=== PATIENT | male | born 1955 | race Caucasian/White ===

== ENCOUNTER 2025-06-02 11:27 | Emergency (ER) | payer OTHER, MEDICARE, SELFPAY ==
--- NOTE | ~2025-06-02 | CT_ITS ---
CT HEAD NON-CONTRAST CT C-SPINE Clinical History: head trauma Comparison: None Technique: Unenhanced axial images skull base to vertex. Coronal, sagittal reformats. Axial images thoracic inlet to skull base. Sagittal and coronal reformats. CT images acquired with automatic exposure control for dose reduction DLP: 605 mGy-cm Findings: Head: Sulci, ventricles: Unremarkable. No intracerebral hemorrhage. No evidence acute territorial infarct. No mass effect, midline shift, intra-/extra-axial fluid collection. Bony calvarium intact. Visualized paranasal sinuses: Clear. Mastoid air cells: Clear. C-spine: No acute fracture or listhesis. Vertebral bodies normal height and alignment. Mild degenerative changes. Disc spaces maintained. Prevertebral soft tissues within normal limits. Visualized lung apices: Clear. Visualized thyroid: Unremarkable. No enlarged cervical nodes. IMPRESSION: HEAD: 1. No acute intracranial findings. C-SPINE: 1. No acute fracture. Reviewed, dictated and finalized at location R. I SPINDLE OPERATOR IMPRESSION: HEAD: 1. No acute intracranial findings. C-SPINE: 1. No acute fracture.
[2025-06-02 11:30] VITALS: BP 152/79; PULSE 72; RESP 18; TEMP 36.6; O2SAT 99
--- OUTSIDE RECORDS SUMMARY | 2025-06-02 12:09 | XMS_ITS | Clinical Summary ---
Author Organization [address] Address [address] [place] [address] Care Team Providers Care Fitness And Wellness Manager Name Role Phone Otis Mathur MD Primary Care Provider [phone] Michael Jorgensen MD Unavailable [phone] Allergies No known active allergies Medications rivaroxaban (XARELTO) 15 mg tablet Take 1 tablet (15 mg total) by mouth daily 90 tablet 3 4 Active amiodarone (PACERONE) 200 mg tablet Take 1 tablet (200 mg total) by mouth daily 90 tablet 3 4 Active tamsulosin (FLOMAX) 0.4 mg extended release capsuleIndicatio ns:Benign prostatic hyperplasia (BPH) with straining on urination Take 1 capsule (0.4 mg total) by mouth daily 30 capsule 11 5 Active tiZANidine (ZANAFLEX) 2 mg tablet Take 1 tablet (2 mg total) by mouth every 6 (six) hours as needed for muscle spasms 30 tablet 5 Active tirzepatide (Mounjaro) 2.5 mg/0.5 mL pen injector injection Inject 0.5 mL (2.5 mg total) under the skin once a week 2 mL 1 5 Active losartan (COZAAR) 100 mg tablet Take 1 tablet (100 mg total) by mouth daily 90 tablet 3 5 Active atorvastatin (LIPITOR) 40 mg tablet Take 1 tablet (40 mg total) by mouth daily 90 tablet 3 5 Active metoprolol tartrate (LOPRESSOR) 25 mg immediate release tablet Take 1 tablet (25 mg total) by mouth 2 (two) times a day 180 tablet 3 5 Active metFORMIN (GLUCOPHAGE) 500 mg tabletIndication s:Type 2 diabetes mellitus with stage 1 chronic kidney disease, without long-term current use of insulin (HCC) TAKE 1 TABLET (500 MG TOTAL) IN THE AM AND 2 TABLETS (1000 MG) IN THE PM 90 tablet 11 5 Active atorvastatin (LIPITOR) 40 mg tablet Take 1 tablet (40 mg total) by mouth daily 90 tablet 3 4 05/29/20 25 Discontinu ed(Reorder ) losartan (COZAAR) 100 mg tablet Take 1 tablet (100 mg total) by mouth daily 90 tablet 3 4 05/29/20 25 Discontinu ed(Reorder ) metoprolol tartrate (LOPRESSOR) 25 mg immediate release tablet Take 1 tablet (25 mg total) by mouth 2 (two) times a day 180 tablet 3 4 05/29/20 25 Discontinu ed(Reorder ) metFORMIN (GLUCOPHAGE) 500 mg tabletIndication s:Type 2 diabetes mellitus with stage 1 chronic kidney disease, without long-term current use of insulin (HCC) Take 1 tablet (500 mg total) by mouth 2 (two) times a day with meals 180 tablet 3 5 05/29/20 25 Discontinu ed(Reorder ) metFORMIN (GLUCOPHAGE) 500 mg tabletIndication s:Type 2 diabetes mellitus with stage 1 chronic kidney disease, without long-term current use of insulin (HCC) Take 1 tablet (500 mg total) by mouth 2 (two) times a day with meals 180 tablet 3 5 05/30/20 25 Discontinu ed(Reorder ) Active Problems Problem Noted Date Diagnosed Date Bilateral adrenal adenomas 10/18/2024 Assessment & Plan (10/18/2024 10:51 AM CDT): Stable dating back to 2019. No further workup. Abdominal pain 10/18/2024 Assessment & Plan (10/18/2024 11:15 AM CDT): Likely muscular. Will send in low-dose tizanidine. Discussed potential interaction with amiodarone. He is going to use very sparingly and take at night prior to bed. Monitor for side effects. Enlarged prostate 10/18/2024 Assessment & Plan (10/18/2024 11:14 AM CDT): Continue tamsulosin. Keep upcoming appointment with Urology for for your evaluation. PSA today as well. Red flags reviewed. Upper respiratory tract infection 03/31/2024 Assessment & Plan (03/31/2024 9:11 AM CDT): Coughing, fatigue, body aches x 2 days. No loss of taste or smell. COVID positive at home today. Patient is not a candidate for paxlovid as use is contraindicated with xarelto and amiodarone. Discussed symptomatic treatment with rest, fluids and acetaminophen for fevers/aches. Reviewed flag signs and symptoms warranting follow-up. Patient to check in in the next week if experiencing any new or worsening symptoms. Encounter for screening colonoscopy 03/31/2024 Colitis 02/16/2024 Assessment & Plan (03/31/2024 8:54 AM CDT): Symptoms improved with addition of azithyromycin. Has noted intermittent discomfort recent but this is related to current cough. Has had looser stools with recent URI symptoms, x 3 days. Assessment & Plan (02/16/2024 5:53 PM CDT): Completed flagyl and cipro as prescribed. Pain all but completely resolved. Normal appetite. Normal bowel movement, no longer having diarrhea. Denies any blood in stools or mucus in stools. Continue to monitor closely. Patient to reach out with any recurrence of symptoms. Benign prostatic hyperplasia (BPH) with straining on urination 02/16/2024 Assessment & Plan (03/31/2024 9:10 AM CDT): Following with Urology, Urology at [facility]. Continues tamsulosin. Assessment & Plan (02/16/2024 5:55 PM CDT): Reports urinary frequency, straining and sensation of incomplete voiding. Reviewed CT findings of severely enlarged prostate and chronic urinary outlet obstruction. Patient denies any burning with urination or hematuria. Will start tamsulosin and refer to Urology for further management. Mixed hyperlipidemia due to type 2 diabetes steph itus 03/11/2021 Assessment & Plan (04/06/2025 9:32 AM CDT): Cholesterol at goal, continue atorvastatin 40 mg daily. Assessment & Plan (10/18/2024 11:14 AM CDT): Compliant with atorvastatin. Will check lipid panel today and plan accordingly. Assessment & Plan (03/31/2024 9:09 AM CDT): Compliant with atorvastatin, denies any medication side effects. Assessment & Plan (09/24/2023 8:55 AM CDT): LDL at goal, continue present management with atorvastatin 40 mg daily. Assessment & Plan (03/23/2023 8:58 AM CDT): Patient is compliant with statin therapy, continue atorvastatin 40 mg daily. Assessment & Plan (03/20/2022 8:19 AM CDT): 02/2022 TC 122 TRG 116 HDL 39 LDL 60 Condition is stable Discussed/ordered labs, encouraged healthy, low carbohydrate lifestyle and at least 150min/week of exercise, continue on atorvastatin 40 mg daily. Assessment & Plan (09/09/2021 8:38 AM CDT): 02/2021 TC 103 TRG 59 HDL 43 LDL 48 Continue atorvastatin 40 mg daily. Will continue to monitor. Assessment & Plan (03/11/2021 11:47 AM CDT): Reviewed previous lipid panel. Will repeat labs today. Patient is walking jogging daily and stays active with grandchildren. No changes in meds. Will continue to monitor. Encounter for prostate cancer screening 03/11/20 21 Assessment & Plan (03/11/2021 12:40 PM CDT): Will check labs Encounter for annual wellness exam in Medicare p atient 03/11/2021 Assessment & Plan (04/06/2025 9:31 AM CDT): No new concerns. Mood stable. Will request updated eye exam. Patient declines influenza and pneumonia vaccine today. Assessment & Plan (03/31/2024 9:10 AM CDT): Preventive exam; reviewed recommended preventive screenings and vaccinations. Encourage annual flu vaccine. Wear sunscreen/protective clothing when outdoors. -colonoscopy due 07/2024, referral placed Assessment & Plan (03/23/2023 8:59 AM CDT): Preventive exam; reviewed recommended preventive screenings and vaccinations. Encourage annual flu vaccine. Wear sunscreen/protective clothing when outdoors. -PSA ordered -current on colonoscopy -patient is a nonsmoker -discussed advance directive/medical living will Assessment & Plan (03/20/2022 8:25 AM CDT): Preventive exam; reviewed recommended preventive screenings and vaccinations. Encourage annual flu vaccine, declines today. Due for repeat screening colonoscopy 2024. Wear sunscreen/protective clothing when outdoors. Assessment & Plan (03/11/2021 12:40 PM CDT): Preventive exam; reviewed recommended preventive screenings and vaccinations. Encourage annual flu vaccine. Patient is current with covid vaccination. Encouraged patient to wear sunscreen/protective clothing when outdoors. Type 2 diabetes mellitus wit h stage 1 chronic kidney disease, without long-term current use of insulin 05/07/2020 Assessment & Plan (04/06/2025 9:31 AM CDT): CKD noting improvement in recent labs. Worsening glycemic control with A1c 8%. Current treatment includes metformin 500 mg b.i.d.. No contraindications for Mounjaro. Will attempt to initiate Mounjaro pending insurance prior authorization. If Mounjaro was not improved, increase metformin to 1 tablet in the morning and 2 tablets at night. Monofilament exam normal, no loss of protective senses. Will request updated eye exam from August of last year. Assessment & Plan (10/18/2024 11:13 AM CDT): A1c today. Continue avoiding NSAIDs. Assessment & Plan (03/31/2024 9:09 AM CDT): Lab Results Component Value Date HGBA1C 7.6 (H) 03/10/2024 HGBA1C 7.7 (H) 09/17/2023 HGBA1C 7.5 (H) 03/23/2023 Improving; continue metformin 500 mg b.i.d.. No loss of protective senses on exam. Blood pressure and cholesterol are well controlled. Urged patient to continue to monitor glucose at home, states blood sugars have been ranging 110-118. Assessment & Plan (02/16/2024 5:52 PM CDT): Stable; continue present management with metformin 500 mg b.i.d.. Assessment & Plan (09/24/2023 1:11 PM CDT): Checking BG 1-2 times per day, never over 115. A1c increased some from last check, patient would like to work on diet changes. Continue current regimen with metformin 500 mg b.i.d. reviewed following a lower carb diet. Continue checking blood glucose frequently, briefly discussed benefits of CGM. Patient prefers to continue fingersticks for now. Current on eye exam. Cholesterol, LDL at goal. Blood pressure is well controlled with use of losartan. Assessment & Plan (03/23/2023 8:58 AM CDT): Discussed importance tight glycemic and blood pressure control. Reviewed previous A1cs, discussed goal less than 7%. Labs ordered today. Continue metformin 500 b.i.d.. Monofilament exam completed today, no loss of protective senses. Assessment & Plan (03/20/2022 8:26 AM CDT): Lab Results Component Value Date HGBA1C 7.3 (H) 03/13/2022 HGBA1C 6.3 09/09/2021 HGBA1C 5.9 03/11/2021 Has been eating a lot more sweets/desserts. Discussed increasing metformin to twice daily, prefers to work on dietary changes. Agreeable to repeat A1c in 3 months. Assessment & Plan (09/09/2021 8:56 AM CDT): Lab Results Component Value Date HGBA1C 6.3 09/09/2021 HGBA1C 5.9 03/11/2021 HGBA1C 6.5 (H) 06/23/2018 A1c increased to 6.3% Patient is taking metformin, 500 mg tablet once daily. He is current on his eye exam. Monofilament exam completed today: No loss of protective senses. Patient is taking losartan. Encouraged him to continue to check blood glucose a few times per week / as needed. Discussed the need to limit sweets / simple sugars. Will repeat A1c in 3-6 months. Assessment & Plan (03/11/2021 11:46 AM CDT): Lab Results Component Value Date HGBA1C 6.5 (H) 06/23/2018 HGBA1C 6.4 (H) 11/16/2012 A1c at goal today, 5.9%. Patient checking feet daily. Is up to date on eye exam. Conitnues taking metformin 500mg once daily and is currently taking losartan and atorvastatin. Assessment & Plan (05/09/2020 2:44 PM LADIES SUIT OPERATOR): Foot exam completed today. Will make appt after 1st of year at [facility]. Lab Results Component Value Date HGBA1C 6.5 (H) 06/23/2018 HGBA1C 6.4 (H) 11/16/2012 A1c today=5.8% Great improvement in A1c. Reviewed dietary/exercise recommendations. Instructed to perform daily foot check. Reviewed medication side effects & scheduling. To make follow up appointment in 6 months. Reviewed red flags; what would warrant further evaluation. History of colonic polyps 06/22/2019 Overview (06/22/2019): Added automatically from request for surgery [id number] Assessment & Plan (03/11/2021 11:54 AM CDT): Last colonoscopy 2019, 5 year interval. Refused influenza vaccine 06/21/2019 Assessment & Plan (05/07/2020 4:39 PM LADIES SUIT OPERATOR): Discussed and the patient refuses immunization today. Educated regarding the need to vaccinate for personal protection and to limit the viruses in the community to protect those most vulnerable. Refused pneumococcal vaccination 06/21/2019 Assessment & Plan (05/07/2020 4:39 PM LADIES SUIT OPERATOR): Discussed and the patient refuses immunization today. Educated regarding the need to vaccinate for personal protection. Morbid obesity with BMI of 40.0-44.9, adult 09/14 PAF (paroxysmal atrial fibrillation) 03/20/2016 Overview (09/18/2016): Atrial fibrillation with RVR Assessment & Plan (04/06/2025 9:30 AM CDT): NSR on exam. Continues metoprolol daily, taking amiodarone Thursday through Thursday. Reports inconsistent use of Xarelto, every other day due to bleeding concerns. Encouraged daily use of Xarelto. Denies any palpitations, shortness breath or dizziness. Next scheduled follow-up with cardiology April 20. Assessment & Plan (03/31/2024 9:08 AM CDT): NSR on exam, HR 98. Patient has not yet had any medications this morning. He denies any shortness of breath or dizziness. Continues Xarelto, amiodarone and metoprolol. He is following with Cardiology Assessment & Plan (02/16/2024 3:45 PM CDT): Rate controlled; continue amiodarone and Xarelto Assessment & Plan (09/24/2023 8:51 AM CDT): Managed by cardiology, taking amiodarone 200 mg M-F. Assessment & Plan (03/23/2023 8:58 AM CDT): Rate controlled, continues amiodarone, metoprolol and Xarelto. Denies any signs or symptoms of bleeding was Xarelto use. Assessment & Plan (09/09/2021 8:39 AM CDT): Followed by Cardiology, Dr. Jorgensen. Doing well on current medication regimen. Assessment & Plan (03/11/2021 11:43 AM CDT): Follows with Dr. Jorgensen. Last OV this morning. Continues xarelto and amiodarone, amiodarone decreased by Dr. Jorgensen today. Patient taking Thu-Thursday instead of daily. Metoprolol 25mg decreased from BID to once daily. Will continue to monitor. Diastasis of rectus abdominis 03/20/2016 Overview (09/18/2016): Diastasis recti Vitamin D deficiency 01/24/2016 Overview (09/18/2016): Vitamin D deficiency Assessment & Plan (10/18/2024 11:13 AM CDT): Not currently on supplement. Will check vitamin-D level and plan accordingly. Assessment & Plan (09/24/2023 1:11 PM CDT): Patient is taking [id number] vitamin-D supplement Assessment & Plan (03/23/2023 8:48 AM CDT): Not currently taking any vitamin d supplements. Assessment & Plan (03/11/2021 12:40 PM CDT): Will repeat labs today. Hypogonadism 10/09/2015 Overview (09/18/2016): Hypogonadism Hypertension associated with type 2 diabetes marlene litus 10/09/2015 Overview (09/18/2016): Hypertension Assessment & Plan (04/06/2025 9:32 AM CDT): Blood pressure is well controlled, continue present management with losartan 100 mg daily and metoprolol 25 mg b.i.d.. Assessment & Plan (03/31/2024 9:09 AM CDT): Blood pressure is well controlled, continue present management with losartan, metoprolol. Assessment & Plan (09/24/2023 1:12 PM CDT): Continue present management, losartan and metoprolol. Managed by Cardiology. Assessment & Plan (03/23/2023 8:51 AM CDT): Blood pressure is well controlled on current medication regimen, continue amiodarone 200 mg, losartan 100 mg daily and metoprolol 25 mg b.i.d.. Patient is following with Cardiology, follow-up scheduled next month. Assessment & Plan (03/20/2022 8:27 AM CDT): Condition is stable Discussed/ordered labs, encouraged healthy, low carbohydrate lifestyle and recommended monitoring sodium intake, <2400 mg daily. Continue on losartan 100 mg daily. Assessment & Plan (09/09/2021 8:40 AM CDT): Blood pressure is well controlled today. Continue losartan without change, will continue to monitor. Assessment & Plan (03/11/2021 11:42 AM CDT): Taking losartan 100mg daily. Followed by Dr. Jorgensen. Reviewed diet and exercise recommendations. Obstructive sleep apnea syndrome 10/09/2015 Overview (09/18/2016): Obstructive sleep apnea Assessment & Plan (04/06/2025 9:29 AM CDT): No current CPAP use. Discussed potential improvement in daytime energy, reduced cardiovascular strain and potential weight loss. Assessment & Plan (03/31/2024 9:13 AM CDT): Encouraged CPAP use. Assessment & Plan (03/23/2023 8:44 AM CDT): Does not wear cpap as recommended. Reviewed 2013 sleep study with patient. We discussed how untreated CARLOS can cause unrefreshing sleep and excessive daytime sleepiness, as well as how it contributes over the emt intermediate to cardiovascular risk, recalcitrant hypertension, and stroke risk. Assessment & Plan (03/11/2021 12:41 PM CDT): Does not wear cpap, has not worn in 20 years. Reviewed importance of cpap use. Patient encouraged to follow up for evaluation of sleep apnea. Resolved Problems Problem Noted Date Diagnosed Date Resolved Date Swelling of ankle, right 03/11/2021 Class 2 severe obesity due t o excess calories with serious comorbidity and body mass index (BMI) of 38.0 to 38.9 in adult 03/11/2021 Assessment & Plan (03/31/2024 9:12 AM CDT): Encouraged healthy diet and regular exercise. Assessment & Plan (09/24/2023 1:11 PM CDT): Discussed healthy diet and monitoring portion sizes. Encouraged increased activity such as walking. Assessment & Plan (03/23/2023 8:59 AM CDT): Discussed healthy diet and importance of regular physical activity. Assessment & Plan (09/09/2021 8:55 AM CDT): Discussed healthy diet and importance of regular physical activity. Patient's weight has steadily been increasing, he plans to increase physical activity with the nicer weather, he is aware of the need for weight loss. Assessment & Plan (03/11/2021 11:48 AM CDT): Reviewed diet and exercise recommendations. BMI 39.0-39.9,adult 05/07/2020 03/11/20 Assessment & Plan (05/07/2020 4:40 PM LADIES SUIT OPERATOR): Reviewed need to lose weight, reviewed health benefits. Reviewed recommendations for daily intake & activity 20-30 minutes/day. Discussed healthy diet and importance of regular physical activity. Weighed 353# 2019; now 297#. Acute bilateral upper abdominal pain 05/07/2020 03/11/2021 Assessment & Plan (05/09/2020 2:41 PM LADIES SUIT OPERATOR): Labs & abd us ordered. Will contact w/results once rec'd. To start otc PPI of his choice. Stressed need for improved intake. Relates poor diet choices. Reviewed red flags. Cellulitis and abscess of lower extremity 01/24/2016 05/09/2020 Overview (09/18/2016): Cellulitis and abscess of lower extremity Microscopic hematuria 10/09/20152019 Overview (09/18/2016): Microscopic hematuria Encounters Date Type Department Care Team Description 04/07/2025 Orders Only [facility] [address] [address] ProviderHerman MD 04/06/2025 9:00 AM CDT Office Visit [facility] [address] [address] Elba Stubbs NP Encounter for annual wellness exam in Medicare patient (Primary Dx); Type 2 diabetes mellitus with stage 1 chronic kidney disease, without long-term current use of insulin (HCC); PAF (paroxysmal atrial fibrillation); Obstructive sleep apnea syndrome; Hypertension associated with type 2 diabetes mellitus (HCC); Mixed hyperlipidemia due to type 2 diabetes mellitus (HCC); Morbid obesity with BMI of 40.0-44.9, adult (HCC) 04/03/2025 6:05 AM CDT [address] [address] Type 2 diabetes mellitus with stage 1 chronic kidney disease, without long-term current use of insulin (HCC) from Last 3 Months Immunizations Immunization Administration Dates Next Due HPV, Unspecified 06/14/2017(Deferred: Patient Refused),06/14/2016(Deferred: Patient Refused) Influenza, Unspecified 04/06/2025(Deferr ed: Patient Refused),02/16/2024(Deferred: Patient Refused),09/24/2023(Deferred: Patient Refused),03/23/2023(Deferred: Patient Refused),03/15/2023(Deferred: Patient Refused),03/15/2023(Deferred: Patient Refused),03/15/2023(Deferred: Patient Refused),03/20/2022(Deferred: Patient Refused),03/15/2022(Deferred: Patient Refused),03/15/2022(Deferred: Patient Refused),03/15/2022(Deferred: Patient Refused),03/15/2022(Deferred: Patient Refused),06/15/2021(Deferred: Patient Refused),07/17/2020(Deferred: Patient Refused),06/15/2020(Deferred: Patient Refused),05/21/2020(Deferred: Patient Refused),05/07/2020(Deferred: Patient Refused),08/22/2019(Deferred: Patient Refused),06/21/2019(Deferred: Patient Refused),06/15/2019(Deferred: Patient Refused),06/15/2019(Deferred: Patient Refused),03/15/2019(Deferred: Patient Refused),03/15/2018(Deferred: Patient Refused),03/15/2018(Deferred: Patient Refused),03/15/2018(Deferred: Patient Refused) Angella (J&J) SARS-CoV-2 Vaccination 12/20/2020 Pneumococcal Conjugate PCV 13 04/06/2025(Deferre d: Patient Refused) Pneumococcal Conjugate, Unspecified 03/16(Deferred: Patient Refused),03/15/2018(Deferred: Patient Refused) Pneumococcal Polysaccharide PPV23 2024(Deferred: Patient Refused),05/07/2020(Deferred: Patient Refused) Tdap 05/16/2021 Surgical History Surgery Date Site/Laterality Comments CARDIOVERSION 11/13/2017 - 12/12/2017 IVY- Dr. Omer COLONOSCOPY 07/22/2012 CHOLECYSTECTOMY COLONOSCOPY 06/15/2019 - 06/14/2020 Medical History Medical History Date Comments Vitamin D deficiency Cellulitis Diastasis of rectus abdominis Hypogonadism male HTN (hypertension) BPH (benign prostatic hyperplasia) PAF (paroxysmal atrial fibrillation) CARLOS (obstructive sleep apnea) Obesity DM (diabetes mellitus) HLD (hyperlipidemia) Adenomatous colon polyp Family History Medical History Relation Name Comments COPD Father COPD; Emphysema Father emphysema; Diabetes Mother Diabetes mellit us; Heart disease Mother Heart disease; Stroke Mother Stroke; Relation Name Status Comments Father Mother Social History Tobacco Use Types Packs/Day Years Used Date Smoking Tobacco: Former Cigarettes Q uit: 2001 Smokeless Tobacco: Never Tobacco Cessation:Counseling Given: Not Answered Alcohol Use Standard Drinks/Week Comments No 0 (1 standard drink = 0.6 oz pur e alcohol) PHQ-2 Answer Date Recorded PHQ-2 Total Score (If total score is 3 or more points, staff should administer the PHQ-9) 0 04/06/2025 Personal Safety Answer Date Recorded Have you ever been in or are you currently in a harmful physical or emotional relationship or is someone making you feel afraid or unsafe? Denies 10/13/2024 Sex and Gender Information Value Date Recorded Sex Assigned at Not on file Legal Sex Male 4:57 PM LADIES SUIT OPERATOR Gender Identity Not on file Sexual Orientation Straight 12/14/2019 6: 40 AM CDT Last Filed Vital Signs Vital Sign Reading Time Taken Comments Blood Pressure 136/70 04/06/2025 8:49 AM CDT Pulse 59 04/06/2025 8:49 AM CDT Temperature 36.4 C (97.5 F) 04/06/2025 8:49 AM CDT Respiratory Rate 16 04/06/2025 8:49 AM CDT Oxygen Saturation 97% 04/06/2025 8:49 AM CDT Inhaled Oxygen Concentration - - Weight 138.3 kg (305 lb) 04/06/2025 8:49 AM CDT Height 185.4 cm (6' 1) 04/06/2025 8:49 AM CDT Body Mass Index 40.24 04/06/2025 8:49 AM CDT Plan of Treatment Health Maintenance Due Date Last Done Comments Hepatitis C Screening 1955 Hepatitis B Screening 1971 Pneumococcal vaccine 65+ (1 of 2 - PCV) 1972 Zoster Vaccine (1 of 2) 2003 Covid-19 Vaccine (2 - 2024-2 6 season) 2025 12/20/2020 Influenza Vaccine (#1) 2025 Hemoglobin A1C 10/02/2025 04/03/2025, 05/0 11/2024, 03/10/2024, Additional history exists Albumin Creatinine Ratio, Urine 04/03/2026 04/03/2025, 03/31/2024, 03/23/2023 Lipid Panel 04/03/2026 04/03/2025, 05/0 11/2024, 03/10/2024, Additional history exists eGFR 04/03/2026 04/03/2025, 05/0 06/2024, 03/10/2024, Additional history exists Depression Screening 04/06/2026 04/06/2025, 10/18/2024, 03/31/2024, Additional history exists Fall Risk Assessment 04/06/2026 04/06/2025, 03/31/2024, 02/16/2024, Additional history exists Foot Exam 04/06/2026 04/06/2025, 03/15, 03/23/2023, Additional history exists Well Visit 65+ 04/06/2026 04/06/2025, 03/15, 03/23/2023, Additional history exists Dilated Eye Exam 10/20/2026 10/20/2024, 09/2022, 04/07/2022, Additional history exists Colon Cancer Screening-Colonoscopy 08/11/2029 08/11/2024, 07/25/2019, 07/22/2016, Additional history exists DTaP/Tdap/Td Vaccine (2 - Td or Tdap) 05/16/2031 05/16/2021 Colon Cancer Screening-CT Colonography Discontinued 08/11/2024, 07/25/2019, 07/22/2016, Additional history exists Colon Cancer Screening-DNA Stool Discontinued 08/11/2024, 07/25/2019, 07/22/2016, Additional history exists Colon Cancer Screening-FIT Discontinued 08/11, 07/25/2019, 07/22/2016, Additional history exists Colon Cancer Screening-Sigmoidoscopy Discontinued 08/11/2024, 07/25/2019, 07/22/2016, Additional history exists Abdominal Aortic Aneurysm (A AA) Screen Completed 10/13/2024, 02/04/2024, 05/10/2020 Prostate Cancer Screening-PSA Discontinued , 03/23/2023, 03/11/2021, Additional history exists Procedures Procedure Name Priority Date/Time Associated Diagnosis Comments EGFR Routine 04/03/2025 6:12 AM CDT Type 2 diabetes mellitus with stage 1 chronic kidney disease, without long-term current use of insulin (HCC) DIFFERENTIAL AUTO Routine 04/03/2025 6:1 2 AM CDT Type 2 diabetes mellitus with stage 1 chronic kidney disease, without long-term current use of insulin (HCC) LIPID PANEL Routine 04/03/2025 6:12 AM CDT Type 2 diabetes mellitus with stage 1 chronic kidney disease, without long-term current use of insulin (HCC) HEMOGLOBIN A1C Routine 04/03/2025 6:12 AM CDT Type 2 diabetes mellitus with stage 1 chronic kidney disease, without long-term current use of insulin (HCC) COMPREHENSIVE METABOLIC PANEL Routine 04/03/2025 6:12 AM CDT Type 2 diabetes mellitus with stage 1 chronic kidney disease, without long-term current use of insulin (HCC) CBC WITH AUTO DIFFERENTIAL Routine 04/03/2025 6:12 AM CDT Type 2 diabetes mellitus with stage 1 chronic kidney disease, without long-term current use of insulin (HCC) ALBUMIN CREATININE RATIO, URINE Routine 04/03/2025 6:12 AM CDT Type 2 diabetes mellitus with stage 1 chronic kidney disease, without long-term current use of insulin (HCC) HM DIABETES EYE EXAM Routine 10/20/2024 10:35 AM CDT PSA SCREEN Routine 10/18/2024 11:09 AM CDT Enlarged prostate CT ABDOMEN PELVIS W CONTRAST ED 10/13/2024 11:54 AM CDT COLONOSCOPY 08/11/2024 7:24 AM LADIES SUIT OPERATOR from Last 3 Months or Most Recently Relevant to Health Maintenance Results * (ABNORMAL) eGFR (04/03/2025 6:12 AM CDT) eGFR 55(L) >=60 mL/min/1. 73 m2 Comment: Interpretive Data Reference Interval Normal >/= 90 mL/min/1.73m2 Mildly decreased* 60 - 89 mL/min/1.73m2 Mildly to moderately decreased 45 - 59 mL/min/1.73m2 Moderately to severely decreased 30 - 44 mL/min/1.73m2 Severely decreased 15 - 29 mL/min/1.73m2 Kidney Failure < 15 mL/min/1.73m2 *Relative to young adult level Estimated glomerular filtration rate is determined by the 2020 CKD-EPI equation recommended by the National Kidney Foundation (A Unifying Approach to GFR Estimation: Recommendations of the NKF-ASK Task Force on Reassessing the Inclusion of Race in Diagnosing Kidney Disease, JASN 2020). The CKD-EPI equation should not be used for patients with unstable renal function and has not been validated in children and those over 70. Current interpretive data was last reviewed 2021. Blood 04/03/2025 6:12 AM CDT 04/03/2025 6:38 AM CDT Elba Stubbs NP LAB BLOOD ORDERABLES Final Result [facility] ([place]) 1 [facility] Department [place] [address] * Differential, auto (04/03/2025 6:12 AM CDT) Neutrophil abs 3.06 1.50 - 6.50 K/cumm Imm gran abs 0.02 0.00 - 0.10 K/cumm [facility] ([place]) Lymphocyte abs 1.55 0.80 - 3.30 K/cumm [facility] ([place]) Monocyte abs 0.58 0.20 - 0.80 K/cumm [facility] ([place]) Eosinophil abs 0.22 0.00 - 0.50 K/cumm [facility] ([place]) Basophil abs 0.08 0.00 - 0.10 K/cumm [facility] ([place]) Neutrophil pct 55.5 % [facility] ([place]) Comment: Interpretive Data Percent cell count reference ranges are not reported, since discordance with absolute values may lead to misinterpretation of CBC data. Current Interpretive Data was last revised on 2017. Imm gran pct 0.4 % [facility] ([place]) Comment: Interpretive Data Percent cell count reference ranges are not reported, since discordance with absolute values may lead to misinterpretation of CBC data. Current Interpretive Data was last revised on 2017. Lymphocyte pct 28.1 % [facility] ([place]) Comment: Interpretive Data Percent cell count reference ranges are not reported, since discordance with absolute values may lead to misinterpretation of CBC data. Current Interpretive Data was last revised on 2017. Monocyte pct 10.5 % [facility] ([place]) Comment: Interpretive Data Percent cell count reference ranges are not reported, since discordance with absolute values may lead to misinterpretation of CBC data. Current Interpretive Data was last revised on 2017. Eosinophil pct 4.0 % [facility] ([place]) Comment: Interpretive Data Percent cell count reference ranges are not reported, since discordance with absolute values may lead to misinterpretation of CBC data. Current Interpretive Data was last revised on 2017. Basophil pct 1.5 % [facility] ([place]) Comment: Interpretive Data Percent cell count reference ranges are not reported, since discordance with absolute values may lead to misinterpretation of CBC data. Current Interpretive Data was last revised on 2017. Blood 04/03/2025 6:12 AM CDT 04/03/2025 6:38 AM CDT Elba Stubbs LAYUP WORKER LAB BLOOD ORDERABLES Final Result [facility] ([place]) 1 [facility] Department of Laboratories [place], [place] [id number] * CBC with auto differential (04/03/2025 6:12 AM CDT) WBC 5.51 3.80 - 9.90 K/cumm Hgb 13.7 13.0 - 17.5 g/dL [facility] ([place] Hct 41.8 38.9 - 50.3 % [facility] Plt 187 150 - 400 K/cumm [facility] ([place]) MPV 10.0 9.1 - 12.3 fL [facility] ([place]) RBC 4.71 4.30 - 5.80 M/cumm [facility] ([place]) MCV 88.7 81.3 - 96.4 fL [facility] ([place] MCH 29.1 27.1 - 33.3 pg [facility] ([place]) MCHC 32.8 32.3 - 35.7 g/dL [facility] ([place]) RDW CV 12.2 11.1 - 14.9 % [facility] ([place]) RDW SD 39.4 35.7 - 48.1 fL [facility] ([place]) NRBC abs 0.00 0.00 - 0.01 K/cumm [facility] ([place]) Blood 04/03/2025 6:12 AM CDT 04/03/2025 6:38 AM CDT Elba Stubbs LAYUP WORKER LAB BLOOD ORDERABLES Final Result [facility] ([place]) 1 [facility] Department [place] [address] * Albumin Creatinine Ratio, Urine (04/03/2025 6:12 AM CDT) Albumin Ur 19.1 mg/L Comment: Interpretive Data No reference range established. Current interpretive data was last revised 2018. Testing performed by: [address] [address] Creatinine Ur 191.0 mg/dL [facility] ([place]) Comment: Interpretive Data No reference range established. Current interpretive data was last revised 2018. Testing performed by: [facility], [address] [place] [address]., [address] Albumin Creatinine Ratio, Ur 10 1 - 29 mg/g [facility] ([place]) Comment:Testing performed by : [facility], [address] [place] [address]., [address] Urine 04/03/2025 6:12 AM CDT 04/03/2025 11:14 AM CDT Elba Stubbs LAYUP WORKER LAB URINE ORDERABLES Final Result Performing Organization Address City/[facility] Co de Phone Number [facility]) [address] [place] [address] * (ABNORMAL) Hemoglobin A1c (04/03/2025 6:12 AM CDT) Hgb A1C 8.0(H) 4.0 - 5.6 % Estimated Average Glucose 183 mg/dL [facility] ([place]) Comment: The ADA recommends reporting an estimated Average Glucose (eAG) with all Hemoglobin A1c results using the equation derived from a study of 507 normal and diabetic adults. Minority populations were underrepresented and children were not included. (Diabetes Care 31:5695-2851, 2008). The eAG is not equivalent to a fasting glucose. Blood 04/03/2025 6:12 AM CDT 04/03/2025 6:38 AM CDT Elba Stubbs NP LAB BLOOD ORDERABLES Final Result Performing Organization Address [facility] Co de Phone Number [facility] ([place]) [address] [place] [address] * (ABNORMAL) Lipid panel (04/03/2025 6:12 AM CDT) Cholesterol 90 30 - 199 mg/dL Comment: Interpretive Data Ages < or = 19 years Acceptable: <170 mg/dL Borderline high: 170-199 mg/dL High: >or= 200 mg/dL Ages > or = 20 years Desirable: <200 mg/dL Borderline high: 200-239 mg/dL High: >or= 240 mg/dL Literature References: 1. Expert Panel on Integrated Guidelines for Cardiovascular Health and Risk Reduction in Children and Adolescents. Pediatrics 2011;128:S213 2. NCEP Expert Panel. Circulation 2004;110:227 Current Interpretive Data was last revised on 2018. Triglycerides 115 <=149 mg/dL [facility] ([place]) Comment: Interpretive Data Ages < or = 9 years Acceptable: <75 mg/dL Borderline high: 75-99 mg/dL High: >or= 100 mg/dL Ages 10 to 20 years Acceptable: <90 mg/dL Borderline high: 90-129 mg/dL High: >or= 130 mg/dL Ages > or = 20 years Desirable: <150 mg/dL Borderline high: 150-199 mg/dL High: 200-499 mg/dL Very high: >or= 499 mg/dL Literature References: 1. Expert Panel on Integrated Guidelines for Cardiovascular Health and Risk Reduction in Children and Adolescents. Pediatrics 2011;128:S213 2. NCEP Expert Panel. Circulation 2004;110:227 Current Interpretive Data was last revised on 2018. HDL 38(L) >=40 mg/dL [facility]) Comment: Interpretive Data Ages < or = 19 years Acceptable: >45 mg/dL Borderline low: 40-45 mg/dL Low: <40 mg/dL Ages > or = 20 years Desirable: >or= 60 mg/dL Low: <40 mg/dL Literature References: 1. Expert Panel on Integrated Guidelines for Cardiovascular Health and Risk Reduction in Children and Adolescents. Pediatrics 2011;128:S213 2. NCEP Expert Panel. Circulation 2004;110:227 Current Interpretive Data was last revised on 2018. LDL, calculated 31 <=129 mg/dL [facility]) Comment: Interpretive Data Ages < or = 19 years Acceptable: <110 mg/dL Borderline high: 110-129 mg/dL High: >or= 130 mg/dL Ages > or = 20 years Optimal: <100 mg/dL Near optimal: 100-129 mg/dL Borderline high: 130-159 mg/dL High: >160 mg/dL Calculated using the Venancio LDL-C estimating equation. This equation was implemented on 2024. Prior to this date LDL-C was estimated using the Friedewald equation. Literature References: 1. Expert Panel on Integrated Guidelines for Cardiovascular Health and Risk Reduction in Children and Adolescents. Pediatrics 2011;128:S213 2. NCEP Expert Panel. Circulation 2004;110:227 3. Venancio Kincaid al. JOHNNY Cardiol. 2019October 13;5(5):540-548. doi: 10.1001/jamacardio.2020.0013 Current Interpretive Data was last revised on 2024. Non-HDL Cholesterol 52 mg/dL [facility] ([place]) Comment: Interpretive Data Ages < or = 19 years Acceptable: <120 mg/dL Borderline high: 120-144 mg/dL High: >145 mg/dL Ages > or = 20 years When triglycerides are >200 mg/dL, Non-HDL cholesterol is a secondary target of therapy with treatment goals that are 30 mg/dL greater than the LDL cholesterol target. Literature References: 1. Expert Panel on Integrated Guidelines for Cardiovascular Health and Risk Reduction in Children and Adolescents. Pediatrics 2011;128:S213 2. NCEP Expert Panel. Circulation 2004;110:227 Current Interpretive Data was last revised on 2018. Chol/HDL ratio 2 [facility] ([place]) Blood 04/03/2025 6:12 AM CDT 04/03/2025 6:38 AM CDT Elba Stubbs LAYUP WORKER LAB BLOOD ORDERABLES Final Result [facility] ([place]) 1 [facility] Department [place] [address] * (ABNORMAL) Comprehensive metabolic panel (04/03/2025 6:12 AM CDT) Sodium 139 135 - 145 mmol/L Potassium, pl 4.7 3.3 - 4.9 mmol/L [facility] ([place]) Chloride 107 97 - 110 mmol/L [facility] ([place]) CO2 24 22 - 32 mmol/L [facility] ([place]) Anion gap 8 2 - 15 mmol/L [facility] ([place]) BUN 18 6 - 25 mg/dL [facility] ([place]) Creatinine 1.37(H) 0.80 - 1.30 mg/dL [facility] ([place]) Glucose 181 70 - 199 mg/dL [facility] ([place]) Comment: Interpretive Data Fasting glucose >/= 126 mg/dl is diagnostic for diabetes. Fasting is defined as no caloric intake for at least 8 hours. Fasting glucose between 100 mg/dl to 125 mg/dl is diagnostic of prediabetes. In a patient with classic symptoms of hyperglycemia or hyperglycemic crisis, a random glucose >/= 200 mg/dl is diagnostic for diabetes. In the absence of unequivocal hyperglycemia, results should be confirmed by repeat testing. The classification and Diagnosis of Diabetes Diabetes Care 202; 46: S19-S40. Current interpretive data was last revised 2022. Calcium 9.0 8.5 - 10.3 mg/dL [facility] ([place]) Bilirubin, total 1.2 0.1 - 1.2 mg/dL [facility] ([place]) Protein, pl 6.1(L) 6.5 - 8.5 g/dL [facility] ([place]) Albumin 4.0 3.5 - 5.0 g/dL [facility] ([place]) Alk phos 61 40 - 130 Units/L [facility] ([place]) ALT 37 7 - 55 Units/L [facility] ([place]) AST 32 10 - 50 Units/L [facility] ([place]) Comment:Hemolysis present. R esults may be affected. Blood 04/03/2025 6:12 AM CDT 04/03/2025 6:38 AM CDT Elba Stubbs NP LAB BLOOD ORDERABLES Final Result [facility] ([place]) 1 [facility] Department [place] [address] * DIABETES EYE EXAM (10/20/2024 10:35 AM CDT) Historical Provider HEALTH MAINTENANCE Final Result * PSA screen (10/18/2024 11:09 AM CDT) PSA-Total 3.91 <=6.20 ng/mL Comment: Interpretive Data AGE SEX REFERENCE INTERVAL 0 minutes-150 years Female None 0 minutes-49 years Male None 50-59 years Male 0-3.90 60-69 years Male 0-5.40 70-79 years Male 0-6.20 80-150 years Male 0-6.20 The Jeanine PSA Total assay procedure was used. Results from different manufacturers or methods may not be comparable. Serial testing should be performed using the same method. Current interpretive data last revised 21. Testing performed by: [facility], [id number] [place] [address], [place]., [address] Blood 10/18/2024 11:0 9 AM CDT 10/18/2024 6:09 PM CDT us Danyelle Barnard NP LAB BLOOD ORDERABLES Final Result [facility] [place]) 1 [facility] Department [place] [address] * CT Abdomen Pelvis W Contrast (10/13/2024 11:54 AM CDT) Anatomical Region Laterality Modality Body N/A Computed Tomogra phy 10/13/2024 12:0 8 PM CDT Narrative 10/13/2024 12:16 PM CDT EXAM DESCRIPTION: CT ABDOMEN PELVIS W CONTRAST REASON FOR STUDY: RLQ abdominal pain RLQ/ right flank pain for a few days. Hx of cholecystectomy TECHNIQUE: CT scan of the abdomen and pelvis performed with intravenous and without oral contrast using helical scanning technique with dynamic intravenous contrast injection. Reconstructed coronal and sagittal MPR images reviewed. All images stored on PACS. Automated exposure control was used as a dose optimization technique for this examination. CONTRAST TYPE/DOSE: 100mL of IOVERSOL 350 MG IODINE/ML INTRAVENOUS SYRINGE injected via intravenous COMPARISON: 02/04/2024 FINDINGS: LOWER CHEST: No consolidation. Granulomatous calcification right middle lobe. Linear density lingula slightly increased from previous may represent subtle band like atelectasis or scarring. LIVER: Normal size. No identified cystic or solid masses. GALLBLADDER: Surgically absent with clips in place. BILE DUCTS: No intrahepatic or extrahepatic ductal dilatation. SPLEEN: Normal size. No focal lesions. PANCREAS: No identified cystic or solid masses. No significant calcifications. No adjacent inflammation or peripancreatic fluid collections. Pancreatic duct not dilated. ADRENALS: Right and left adrenal nodules are unchanged measuring 1.0 cm on the right and 1.6 cm on the left. If no prior studies are available for comparison consider 1 year follow-up to document stability per guidelines. KIDNEYS/URINARY TRACT: No obstructing stone or hydronephrosis. No hydroureter. Cortical hypodensity measures 1 cm on the left likely related to simple cysts and unchanged. No follow-up required per guidelines. Urinary bladder is partially distended. Inferior extrinsic compression by prominent prostate gland is identified measuring 6.5 x 6.1 x 6.1 cm. GI: No dilated bowel loops. No obvious wall thickening. Normal appendix. No significant diverticular disease. PERITONEUM: No ascites or free air. RETROPERITONEUM: No mass or adenopathy. REPRODUCTIVE: Enlarged prostate as above. VASCULATURE: No abdominal aortic aneurysm. MUSCULOSKELETAL: No significant abnormality. OTHER: No other abnormality. IMPRESSION: No acute finding. Bilateral adrenal nodules are unchanged from prior exam of 02/04/2024. If no prior studies are available for comparison consider 1 year follow-up to document stability per guidelines. Enlarged prostate with inferior extrinsic compression on the urinary bladder. THIS IS AN ELECTRONICALLY VERIFIED FINAL REPORT 10/13/2024 12:16 PM - Electronically signed by Jean-Claude Rosen M.D. RB: RHEA Report ID: [id number] Reading Location: [id number] Procedure Note Jean-Claude Rosen MD - 10/13/2024 EXAM DESCRIPTION: CT ABDOMEN PELVIS W CONTRAST REASON FOR STUDY: RLQ abdominal pain RLQ/ right flank pain for a few days. Hx of cholecystectomy TECHNIQUE: CT scan of the abdomen and pelvis performed with intravenousand without oral contrast using helical scanning technique with dynamic intravenous contrast injection. Reconstructed coronal and sagittal MPRimages reviewed. All images stored on PACS. Automated exposure control was usedas a dose optimization technique for this examination. CONTRAST TYPE/DOSE: 100mL of IOVERSOL 350 MG IODINE/ML INTRAVENOUSSYRINGE injected via intravenous COMPARISON: 02/04/2024 FINDINGS: LOWER CHEST: No consolidation. Granulomatous calcification right middle lobe. Linear density lingula slightly increased from previous may representsubtle band like atelectasis or scarring. LIVER: Normal size. No identified cystic or solid masses. GALLBLADDER: Surgically absent with clips in place. BILE DUCTS: No intrahepatic or extrahepatic ductal dilatation. SPLEEN: Normal size. No focal lesions. PANCREAS: No identified cystic or solid masses. No significant calcifications. No adjacent inflammation or peripancreatic fluidcollections. Pancreatic duct not dilated. ADRENALS: Right and left adrenal nodules are unchanged measuring 1.0 cmon the right and 1.6 cm on the left. If no prior studies are available for comparison consider 1 year follow-up to document stability per guidelines. KIDNEYS/URINARY TRACT: No obstructing stone or hydronephrosis. No hydroureter. Cortical hypodensity measures 1 cm on the left likelyrelated to simple cysts and unchanged. No follow-up required per guidelines. Urinary bladder is partially distended. Inferior extrinsiccompression by prominent prostate gland is identified measuring 6.5 x 6.1 x 6.1 cm. GI: No dilated bowel loops. No obvious wall thickening. Normalappendix. No significant diverticular disease. PERITONEUM: No ascites or free air. RETROPERITONEUM: No mass or adenopathy. REPRODUCTIVE: Enlarged prostate as above. VASCULATURE: No abdominal aortic aneurysm. MUSCULOSKELETAL: No significant abnormality. OTHER: No other abnormality. IMPRESSION: No acute finding. Bilateral adrenal nodules are unchanged from prior exam of 02/04/2024. Ifno prior studies are available for comparison consider 1 year follow-up to document stability per guidelines. Enlarged prostate with inferior extrinsic compression on the urinarybladder. THIS IS AN ELECTRONICALLY VERIFIED FINAL REPORT 10/13/2024 12:16 PM - Electronically signed by Jean-Claude Rosen M.D. RB: RHEA Report ID: [id number] Reading Location: [place] [address] us Keo Roberson MD IMG CT PROCEDURES F inal Result * Colonoscopy (08/11/2024 7:24 AM LADIES SUIT OPERATOR) Anatomical Region Laterality Modality Other Narrative Procedure Note Kedar Hernández, - 08/11/2024 7:24 AM CST [facility] Patient Name: Dimitrios Cobb Procedure Date: 08/11/2024 7:24 AM Date of : 1955 Admit Type: Outpatient Age: 69 Gender: Male Attending MD: Kedar Hernández D.O. Room: [facility] ENDOSCOPY ROOM 3 Note Status: Finalized Patient Profile: Refer to note in patient chart for documentation of history and physical. Procedure: Colonoscopy Indications: High risk colon cancer surveillance: Personalhistory of colonic polyps, Last colonoscopy: July2019 Referring MD: Otis Mathur M.D. Providers: Kedar Hernández D.O. Impression: - The examined portion of the ileum was normal. - One 7 mm polyp in the proximal transverse colon, removed with a hot snare. Resected and retrieved. - Three 3 to 4 mm polyps in the mid transversecolon, removed with a cold snare. Resected andretrieved. - One 8 mm polyp in the sigmoid colon, removed witha hot snare. Resected and retrieved. - Internal hemorrhoids. Recommendation: - Discharge patient to home. - Resume previous diet. - Continue present medications. - Await pathology results. - Repeat colonoscopy in 3 years for surveillance. - Return to primary care physician PRN. Medicines: Monitored Anesthesia Care Complications: No immediate complications. Estimated Blood Loss: Estimated blood loss was minimal. Procedure: Pre-Anesthesia Assessment: - As per anesthesia. The benefits, risks and alternatives of theprocedure and sedation were discussed and informed consentwas obtained. All questions were answered. Please referto the signed informed consent document in the medical record. The bowel preparation used was Miralax and bisacodyl tablets via split dose instruction. The scope was passed under direct vision. TheColonoscope [id number] was introduced through the anus and advanced to the 5 cm into the ileum. Theterminal ileum, ileocecal valve, appendiceal orifice, and rectum were photographed. The colonoscopy was performed without difficulty. The patient tolerated the procedure well. The quality of the bowel preparation was adequate. Findings: The perianal and digital rectal examinations were normal. The terminal ileum appeared normal. A 7 mm polyp was found in the proximal transverse colon. The polypwas pedunculated. The polyp was removed with a hot snare. Resection and retrieval were complete. Three sessile polyps were found in the mid transverse colon. Thepolyps were 3 to 4 mm in size. These polyps were removed with a cold snare. Resection and retrieval were complete. An 8 mm polyp was found in the sigmoid colon. The polyp was pedunculated. The polyp was removed with a hot snare. Resection and retrieval were complete. Internal hemorrhoids were found. The hemorrhoids were small. No additional abnormalities were found on retroflexion. Electronically signed by Kedar Hernández M.D. Kedar Hernández D.O. 08/11/2024 8:37:07 AM Number of Addenda: 0 Note Initiated On: 08/11/2024 7:24 AM Procedure Code(s): --- Professional --- 08467, Colonoscopy, flexible; with removal of tumor(s), polyp(s), or other lesion(s) by snare technique --- Technical --- 39419, Colonoscopy, flexible; with removal of tumor(s), polyp(s), or other lesion(s) by snare technique Diagnosis Code(s): --- Professional --- Z86.010, Personal history of colonic polyps K64.8, Other hemorrhoids D12.3, Benign neoplasm of transverse colon (hepatic flexure orsplenic flexure) D12.5, Benign neoplasm of sigmoid colon --- Technical --- Z86.010, Personal history of colonic polyps K64.8, Other hemorrhoids D12.3, Benign neoplasm of transverse colon (hepatic flexure orsplenic flexure) D12.5, Benign neoplasm of sigmoid colon CPT copyright 2020 [employer]. All rights reserved. The codes documented in this report are preliminary and upon vice president education reviewmay be revised to meet current compliance requirements. Recognized by the [place] [employer] for promoting quality in endoscopy Kedar AllysonFelicita Hernández DO ENDOSCOPY PROCEDURES Final Res ult from Last 3 Months or Most Recently Relevant to Health Maintenance Insurance MEDICARE [employer] [facility] MEDICARE FOR LIFE Advance Directives For more information, please contact: [phone] * Full Code (Latest Code Status on File) Date Activated Date Inactivated Comments 08/11/2024 7:07 AM 08/11/2024 1:29 PM * Full Code Date Activated Date Inactivated Comments 08/11/2024 7:06 AM 08/11/2024 7:07 AM * Full Code Date Activated Date Inactivated Comments 07/25/2019 9:12 AM 07/25/2019 3:48 PM * Full Code Date Activated Date Inactivated Comments 07/25/2019 9:11 AM 07/25/2019 9:12 AM Care Teams Fitness And Wellness Manager Relationship Specialty Start Date End Date Otis Mathur MD [address] [place] [address] PCP - General 11/16/12 [place] [id number] [facility] [address] [place] [address] Consulting Physician Cardiology 10/02/17
--- OUTSIDE RECORDS SUMMARY | 2025-06-02 12:09 | XMS_ITS | Clinical Summary ---
Author Organization [facility] Address [address] [place] [id number] Care Team Providers Care Fire Control Technician G Name Role Phone Otis Mathur Primary Care Provider [phone] Allergies No known active allergies Medications amiodarone (PACERONE) 200 MG tablet Take 200 mg by mouth 1 (one) time each day Active atorvastatin (LIPITOR) 40 MG tablet Take 40 mg by mouth 1 (one) time each day Active losartan (COZAAR) 100 MG tablet Take 100 mg by mouth 1 (one) time each day Active metFORMIN (GLUCOPHAGE) 500 MG tablet Take 500 mg by mouth 1 (one) time each day with breakfast Active metoprolol tartrate 25 MG tablet Take 25 mg by mouth 2 (two) times a day Active rivaroxaban (XARELTO) 15 MG tablet Take 15 mg by mouth 1 (one) time each day Active Social History Tobacco Use Types Packs/Day Years Used Date Smoking Tobacco: Never Assessed Sex and Gender Information Value Date Recorded Sex Assigned at Not on file Legal Sex Male 2:46 PM EST Gender Identity Not on file Sexual Orientation Not on file Plan of Treatment Health Maintenance Due Date Last Done Comments Colorectal Cancer Screening: Annual FOBT 2002 Colorectal Cancer Screening: Colonoscopy 2002 Colorectal Cancer Screening: Sigmoidoscopy 2002 Pneumococcal Vaccine: 50+ Ye ars (1 of 1 - PCV) 2003 Influenza Vaccine (#1) 2025 Hepatitis B Vaccine Aged Out No longe r eligible based on patient's age to complete this topic Care Teams Fire Control Technician G Relationship Specialty Start Date End Date Otis Mathur [address] [place] [address] PCP - General Internal Medicine 06/11/21
--- OUTSIDE RECORDS SUMMARY | 2025-06-02 12:09 | XMS_ITS | Clinical Summary ---
Author Organization [facility] Address [address] [place] [address] Care Team Providers Care Product Tester Name Role Phone Otis Mathur MD Primary Care Provider [phone] Source Comments [facility],non-owned Affiliates and Associated Physician Practices is amultiple site organization consisting of ambulatory clinics and hospital sitesin [place], [place], [place] and [place]. This disclosure is being madepursuant to the Care Everywhere program and may not contain all information available regarding this patient. Last updated 18.[facility] Allergies No known active allergies Medications * Be aware that medications may not be up to date on this document. Alwaysverify current medications with the patient. LISINOPRIL PO Active neomycin-polymyx in-hc (CORTISPORIN) 3.5-71023-2 otic suspension 4 Drops 4 times daily 10 mL 0 02/22/2016 Active Social History Tobacco Use Types Packs/Day Years Used Date Smoking Tobacco: Never Sex and Gender Information Value Date Recorded Sex Assigned at Not on file Legal Sex Male 11:15 AM CDT Gender Identity Not on file Sexual Orientation Not on file Last Filed Vital Signs Vital Sign Reading Time Taken Comments Blood Pressure 128/82 02/22/2016 11:35 AM CDT Pulse 88 02/22/2016 11:35 AM CDT Temperature 37.1 C (98.7 F) 02/22/2016 11:35 AM CDT Respiratory Rate 18 02/22/2016 11:35 AM CDT Oxygen Saturation 96% 02/22/2016 11:35 AM CDT Inhaled Oxygen Concentration - - Weight 136.1 kg (300 lb) 02/22/2016 11:35 AM CDT Height 185.4 cm (6' 1) 02/22/2016 11:35 AM CDT Body Mass Index 39.58 02/22/2016 11:35 AM CDT Plan of Treatment Health Maintenance Due Date Last Done Comments COLOGUARD (AGES 45-75) - COL ON CA SCREENING 1955 COLON MONITORING 1955 COLONOSCOPY - COLON CA SCREENING 1953 CT COLONOGRAPHY - COLON CA SCREENING 1955 Colorectal Cancer Screening 1955 FIT - COLON CA SCREENING 1955 FLEX SIG - COLON CA SCREENING 1955 LIPID TESTING 1955 HEPATITIS C SCREENING 06/15/1971 DTAP/TDAP/TD VACCINES (1 - Tdap) 1972 PNEUMOCOCCAL VACCINE 50+ (1 of 1 - PCV) 2003 ZOSTER VACCINE (1 of 2) 2003 DEPRESSION SCREENING 06/15/2024 COVID-19 VACCINE (1 - 2024-2 6 season) 2025 INFLUENZA VACCINE (#1) 2025 Respiratory Syncytial Virus (RSV) Vaccine Pt: or over 60 yrs (1 - 1-dose 75+ series) 2028 HEPATITIS B VACCINE Aged Out No longe r eligible based on patient's age to complete this topic HIB VACCINE Aged Out No longer eligi ble based on patient's age to complete this topic HPV VACCINE Aged Out No longer eligi ble based on patient's age to complete this topic MENINGOCOCCAL (Group B) VACC INE SHARED DECISION-MAKING Aged Out No longer eligibl e based on patient's age to complete this topic MENINGOCOCCAL GROUPS A/C/Y/W VACCINE Aged Out No longer eligible b ased on patient's age to complete this topic Insurance * Guarantor: Dimitrios Cobb Account Type Relation to Patient Date of Phone Billing Address Personal/Family Self 1955 [address] [place] [address] [facility] Care Teams Product Tester Relationship Specialty Start Date End [place] [address] PCP - General Internal Medicine 02/22/16
[2025-06-02] MEDS: LIDO 2%/EPINEPHRINE 1:100,000 20 ML VIAL 10 ML INFILTRATE (12:42)
[2025-06-02] MEDS: HYDROcodone/acetaminophen (*CRX) 5-325 MG TABLET 1 TAB PO (12:43)
--- NOTE | 2025-06-02 13:06 | ED.GENADULT ---
HPI - General Adult General Chief complaint: Wound/Laceration Stated complaint: Lac to head. No LOC. takes xarelto Time Seen by Provider: 06/02/25 11:45 History of Present Illness HPI narrative: Dimitrios Cobb is a 69-year-old male who presents today after being hit the top of his head with a metal door at work at around 10:30 a.m.. He denies having loss of consciousness but did fall to his knees drain this. He states that he does take Xarelto. He states his headache right now is about 8/10. Related Data Allergies Allergy/AdvReac Type Severity Reaction Status Date / Time No Known Allergies Allergy Verified 06/02/25 11:29 Review of Systems Review of Systems: All systems reviewed & are unremarkable except as noted in HPI and below Exam Narrative: GENERAL: Well-appearing, well-nourished, and in no acute distress. HEAD: Normocephalic, there is about a 3 cm linear laceration slightly keep pain to the top of his head bleeding currently controlled EYES: PERRLA and EOMI. ENT: Nares clear, no rhinorrhea or epistaxis. Mucous membranes moist. Oropharynx without tonsillar hypertrophy exudate or other lesions. NECK: Supple. No adenopathy or masses. No carotid bruits or JVD CHEST: Clear to auscultation. No respiratory distress. No wheezes rales or rhonchi HEART: Regular rate and rhythm. No murmur heard. Normal peripheral pulses. EXTREMITIES: Normal range of motion. No edema. SKIN: Warm, dry, no rash. NEURO: No focal deficits. Alert and oriented x3. PSYCH: Normal mood and affect. Course Vital Signs Vital signs: Vital Signs Temperature 36.6 C 06/02/25 11:30 Pulse Rate 72 06/02/25 11:30 Respiratory Rate 18 06/02/25 11:30 Blood Pressure 152/79 H 06/02/25 11:30 Pulse Oximetry 99 06/02/25 11:30 Oxygen Delivery Room Air 06/02/25 11:30 Temperature 36.1 C L 06/02/25 14:03 Pulse Rate 69 06/02/25 14:03 Respiratory Rate 18 06/02/25 14:03 Blood Pressure 141/81 H 06/02/25 14:03 Pulse Oximetry 96 06/02/25 14:03 Oxygen Delivery Room Air 06/02/25 11:30 Procedures Laceration Laceration 1: Date: 06/02/25 Time: 13:57 Site: scalp Size (cm): 3 Description: linear Depth: simple, single layer Local Anesthetic: lidocaine 2% and with epi Amount of anesthesia used (mL): 5 Pre-repair: wound explored, irrigated and irrigated extensively ====== Skin Level ====== Skin layer closed with: ever (6 ever ) ====== Subcutaneous Layer ====== ====== Muscle Layer ====== ====== Tendon Layer ====== MDM MDM Narrative Medical decision making narrative: 69-year-old male who presents after being hit in the head with this metal steel door the but of 3 cm laceration to the top of his head no active bleeding at this time. He does complain of a severe headache and does take blood thinners. Denies LOC plan to get CT of head and neck and a dose of size cleanse wound and then closed with ever Imaging : No acute findings Laceration on head anesthetized with lidocaine 2% with epi thoroughly irrigated with sterile saline 500mls and closed with 6 ever Patient tolerated well. Patient provided with expectant healing process to expect and strict return precautions. He denies anything further is is comfortable with discharge at this time. Differential Diagnosis Differential Diagnosis: concern for head bleed, concussion, cervical spine injury Imaging Data Radiologist's impression: ITS Impressions Cervical Spine CT 06/02/25 12:49 IMPRESSION: HEAD: 1. No acute intracranial findings. C-SPINE: 1. No acute fracture. Head CT 06/02/25 12:49 IMPRESSION: HEAD: 1. No acute intracranial findings. C-SPINE: 1. No acute fracture. Discharge Plan Discharge Clinical Impression: Laceration Head injury Qualifiers: Encounter type: initial encounter Qualified Code(s): S09.90XA - Unspecified injury of head, initial encounter Concussion Qualifiers: Encounter type: initial encounter Loss of consciousness presence/duration: without LOC Qualified Code(s): S06.0X0A - Concussion without loss of consciousness, initial encounter Patient Disposition: Home Condition: Stable Instructions: Antibiotic Form, Laceration (ED), Concussion (ED), Staple Care (ED) Additional Instructions: Your ever will need to be removed in about 10 days You may ice area for pain relief, keep your ever cleansed and then keep dry You may take Tylenol for pain Follow up with your PCP in 1 week to ensure you are improving If you develop any new or worsening symptoms of infection, or vomiting, confusion, vision changes, light headed then return to the ER. Patient Language: Slovenian Follow-up/Referrals: Kareen,Otis Nolan M.D. [Primary Care Provider] - 3 Days Stand Alone Forms: Work/School Release IP Time of Disposition: 13:54
[2025-06-02 14:03] VITALS: BP 141/81; PULSE 69; RESP 18; TEMP 36.1; O2SAT 96
== END 2025-06-02 14:05 | disposition home or self-care (01) ==
PROVIDERS: Emergency Provider Nurse Practitioner Family; PCP Family Medicine
DX: S06.0X0A Concussion without loss of consciousness, initial encounter (principal); S01.01XA Laceration without foreign body of scalp, initial encounter; W22.8XXA Striking against or struck by other objects, initial encounter; Z79.01 Long term (current) use of anticoagulants
CPT/HCPCS: 12002; 70450; 72125; 99284; A9270; J2004